=== PATIENT | male | born 1990 | race Caucasian/White ===

== ENCOUNTER 2025-06-15 21:29 | Emergency (ER) | payer BC, SELFPAY ==
--- NOTE | ~2025-06-15 | XR_ITS ---
HISTORY: fall COMPARISON: None. TECHNIQUE: 2 view lumbar spine. FINDINGS: Lumbar vertebral bodies are normally aligned. There are 5 non-rib bearing lumbar vertebral bodies. Compression of the superior endplate of L1 is identified. Straightening of the normal curvature of the lumbar spine is also noted. Degenerative disease is identified at the level of L5/S1 disc space narrowing and endplate changes. Remaining disc spaces and vertebral body heights are otherwise well maintained. Paraspinal soft tissues are unremarkable IMPRESSION: Compression of the superior endplate of L1, age indeterminate. Reviewed, dictated and finalized at location A.
[2025-06-15 21:42] VITALS: BP 162/108; PULSE 81; RESP 18; TEMP 36.6; O2SAT 100
[2025-06-15] MEDS: KETOROLAC (*BKC) 60 MG/2 ML VIAL IM (23:25)
[2025-06-15] MEDS: ACETAMINOPHEN 500 MG TABLET 1000 MG PO (23:27)
[2025-06-15] MEDS: LIDOCAINE 5% PATCH 1 PATCH TRANSDERM (23:27)
--- OUTSIDE RECORDS SUMMARY | 2025-06-15 23:50 | XMS_ITS | Patient Health Record ---
Author Organization [facility] [place] Address [address] [place] [address] Care Team Providers Care Alarm Technician Name Role Phone JUDE ARIZA Unavailable Unavailable Reason For Referral No Information Plan Of Treatment Pending Test Test Name Order Date Electrocardiogram (EKG) 04/17/2021 Insurance Providers Payer Name Payer Address Payer Phone Subscriber Number Group Number Insured Name Patient Relationship to Insured Coverage Start Date Coverage End Date [employer] [address] [address] [facility] [place] [address] [id number] GLENN SRINIVASAN Self - patient is the insured 1 2
--- NOTE | 2025-06-15 23:54 | ED_ITS ---
HPI - Back Pain/Injury General Chief Complaint: Back Pain/Injury Stated Complaint: GLF fall, back pain Time Seen by Provider: 06/15/25 21:54 History of Present Illness HPI Narrative: 34-year-old otherwise healthy male aside from obesity presenting to the emergency department after a slip and fall. Patient states that he was trying to sit down on a stool at work when the stool rolled out from under him and he fell backwards hitting the lower lumbar area against the stool itself. Did not his head or lose consciousness. Endorses pain in his lumbar region. History of a previous surgical repair and his femur and left side that he still gets some pain from but is ambulatory without difficulty. No neurological complaints. Was otherwise in his normal state of health. Did not take anything for pain prior to arrival. This injury occurred at work. Related Data Allergies Allergy/AdvReac Type Severity Reaction Status Date / Time No Known Allergies Allergy Verified 06/15/25 21:30 Review of Systems Review of Systems: As reviewed above in HPI Exam Narrative: GENERAL: [Well-appearing, well-nourished, and in no acute distress.] HEAD: [Normocephalic, atraumatic.] EYES: [PERRLA and EOMI.] ENT: Nares clear, no rhinorrhea or epistaxis. Mucous membranes moist. NECK: Supple. CHEST: [Clear to auscultation. No respiratory distress.] HEART: [Regular rate and rhythm]. No murmur heard. [Normal peripheral pulses.] ABDOMEN: [Soft, nondistended], [nontender], [No rigidity or guarding] EXTREMITIES: Normal range of motion. [No edema.] SKIN: Warm, dry, no rash. NEURO: [No focal deficits]. Alert and oriented [x3.] Ambulatory in the examination room. Full strength and sensation throughout both legs. Some midline lumbar back pain more paraspinal muscle back pain left side compared to midline. No obvious step-offs deformities. PSYCH: [Normal mood and affect.] Course Vital Signs Vital signs: Vital Signs Temperature 36.6 C 06/15/25 21:42 Pulse Rate 81 06/15/25 21:42 Respiratory Rate 18 06/15/25 21:42 Blood Pressure 162/108 H 06/15/25 21:42 Pulse Oximetry 100 06/15/25 21:42 Oxygen Delivery Room Air 06/15/25 21:42 Temperature 36.6 C 06/15/25 21:42 Pulse Rate 81 06/15/25 21:42 Respiratory Rate 18 06/15/25 21:42 Blood Pressure 162/108 H 06/15/25 21:42 Pulse Oximetry 100 06/15/25 21:42 Oxygen Delivery Room Air 06/15/25 21:42 MDM - Back Pain/Injury MDM Narrative Medical decision making narrative: 34-year-old otherwise healthy male aside from obesity presenting to the emergency department after a slip and fall. Patient states that he was trying to sit down on a stool at work when the stool rolled out from under him and he fell backwards hitting the lower lumbar area against the stool itself. Did not his head or lose consciousness. Endorses pain in his lumbar region. History of a previous surgical repair and his femur and left side that he still gets some pain from but is ambulatory without difficulty. No neurological complaints. Was otherwise in his normal state of health. Did not take anything for pain prior to arrival. This injury occurred at work. Ambulatory in the examination room. Full strength and sensation throughout both legs. Some midline lumbar back pain more paraspinal muscle back pain left side compared to midline. No obvious step-offs deformities. Patient has normal vital signs here and no signs of neurological deficit. X-rays of the lumbar spine were obtained secondary to the minor injury. Suspicion for lumbar paraspinal muscle injury, musculoskeletal pain, low suspicion lumbar fracture. No neurological complaints or historical features raising suspicion for cord pathology from the injury. X-rays reviewed that shows compression the superior endplate of L1 with an indeterminate age but potentially related to injury today. No fracture. Patient was made aware of the findings here and will be given pain control medications and follow-up instructions with his primary care provider. If pain or symptoms get worse he might benefit from outpatient MRI imaging but no urgent or emergent concerns raised today but he was given strict return precautions rel ated to the injury. Medical Records Attestation: I reviewed the patient's medical records. Imaging Data Attestation: I personally reviewed and interpreted this imaging study as follows: My impression: Impressions Lumbar Spine X-Ray 06/15/25 23:32 IMPRESSION: Compression of the superior endplate of L1, age indeterminate. Discharge Plan Discharge Clinical Impression: Injury of lumbar spine, Abnormal x-ray of lumbar spine, Strain of lumbar region Patient Disposition: Home Condition: Stable Instructions: Antibiotic Form, Thoracolumbar Fracture (ED) Additional Instructions: The x-rays show a compression of the endplate of L1 which is a lumbar vertebral body however the lumbar bodies are normally aligned with no identified fracture. This is likely related to the injury today but cannot be determined based on x- rays. We will send you home with some pain medications to help with the injury. Return to the ER if you have increased pain in your back, you develop lower extremity weakness/numbness/paralysis, you have numbness or tingling in your private parts, or you are unable to control your ability to urinate/stool. Follow-up with regular primary care provider and if needed they might pursue additional imaging such as MRI if warranted but no urgent or emergent concerns today. Patient Language: Albanian Prescriptions: New ibuprofen 800 mg tablet 800 mg PO TID PRN (Reason: pain) Qty: 30 0RF acetaminophen [Tylenol Extra Strength] 500 mg tablet 1,000 mg PO TID PRN (Reason: pain) Qty: 30 0RF lidocaine 5 % adhesive patch,medicated 1 patch topical DAILY Qty: 15 0RF Rx Instructions: leave on most painful area for up to 12 hrs Follow-up/Referrals: UNKNOWN,DOCTOR [Primary Care Provider] - Time of Disposition: 00:00
== END 2025-06-16 00:11 | disposition home or self-care (01) ==
PROVIDERS: Emergency Provider Student in an Organized Health Care Education/Training Program
DX: S39.012A Strain of muscle, fascia and tendon of lower back, initial encounter (principal); W08.XXXA Fall from other furniture, initial encounter
CPT/HCPCS: 72100; 96372; 99283; A9270; J1885